=== PATIENT | male | born 1985 | race African-American/Black ===

== ENCOUNTER 2018-02-14 21:04 | Emergency (ER) | payer BC ==
[~2018-02-14] VITALS: Ht 182.9 cm; Wt 64.0 kg
[2018-02-14] MEDS ORDERED: MORPHINE SULFATE 4 MG/ML CPJ (NOT FOR IM USE) IV STA (23:26)
[2018-02-14] MEDS ORDERED: ONDANSETRON HCL 4MG/2ML VIAL IV STA (23:26)
[2018-02-15] MEDS ORDERED: MIDAZOLAM HCL 2 MG/2 ML VIAL IV ONE (01:30)
[2018-02-15] MEDS ORDERED: MORPHINE SULFATE 4 MG/ML CPJ (NOT FOR IM USE) IV ONE (01:30)
[2018-02-15] MEDS ORDERED: PROPOFOL 200MG/20ML VIAL IV ONE (01:45)
[2018-02-15] MEDS ORDERED: KETAMINE HCL 50 MG/ML 10ML IV ONE (01:45)
[2018-02-15 04:50] VITALS: BP 123/68
== END 2018-02-15 06:15 | disposition home or self-care (01) ==
LOC: ER 21:04
DX: S43.015A Anterior dislocation of left humerus, initial encounter (principal); S09.8XXA Other specified injuries of head, initial encounter; Y04.2XXA Assault by strike against or bumped into by another person, initial encounter; Y93.89 Activity, other specified; Y92.89 Other specified places as the place of occurrence of the external cause; R03.0 Elevated blood-pressure reading, without diagnosis of hypertension; F12.90 Cannabis use, unspecified, uncomplicated; F17.210 Nicotine dependence, cigarettes, uncomplicated; Z79.899 Other long term (current) drug therapy
CPT/HCPCS: 23650; 70450; 73030; 96374; 96375; 96376; 99152; 99153; 99285; J2250; J2270; J2405; J3490; Z7610; A4565; J2704